=== PATIENT | female | born 1965 | race Caucasian/White ===

== ENCOUNTER 2022-03-19 10:34 | Emergency (ER) | payer OTHER ==
[2022-03-19 11:14] LABS: HEMOGLOBIN 13.5 gm/dl (12.3-15.3); RED BLOOD COUNT 4.45 M/UL (4.00-5.10); WHITE BLOOD COUNT 10.6 K/UL (4.5-11.0)
[2022-03-19 11:53] LABS: BUN/CREATININE RATIO 27 (0-10)
[2022-03-19] MEDS ORDERED: PREDNISONE50 MG PO (14:26)
== END 2022-03-19 14:55 | disposition home or self-care (01) ==
LOC: ER1 10:34
PROVIDERS: Emergency Medicine
DX: R07.9 Chest pain, unspecified (principal); M79.601 Pain in right arm; Z51.81 Encounter for therapeutic drug level monitoring
CPT/HCPCS: 70450; 70496; 70498; 71045; 80053; 82550; 82553; 82962; 84484; 85025; 85610; 85730; 93005; 99285; Q9967

== ENCOUNTER 2022-04-14 16:22 | Emergency (ER) | payer OTHER ==
[~2022-04-14 16:22] MED LIST: PREDNISONE50 MG PO
== END 2022-04-14 18:18 | disposition left against medical advice (07) ==
LOC: ER1 16:22
DX: Z53.21 Procedure and treatment not carried out due to patient leaving prior to being seen by health care provider (principal)

== ENCOUNTER → 2022-06-17 | Outpatient (CLI) | payer OTHER | LOC: KOH-I 06-02 15:15 | DX: M54.2 Cervicalgia (principal); M47.812 Spondylosis without myelopathy or radiculopathy, cervical region | CPT/HCPCS: 72141 ==